=== PATIENT | female | born 1965 | race Caucasian/White ===

== ENCOUNTER 2023-11-12 02:42 | Emergency (ER) | payer OTHER, SELFPAY ==
[2023-11-12 02:43] VITALS: BP 179/97
[2023-11-12 03:09] VITALS: BP 185/108
[2023-11-12 03:11] VITALS: BMI 23.2
--- NOTE | 2023-11-12 03:11 | ED.GENMED ---
History of Present Illness
<RICA Marcum - Last Filed: 11/12/23 05:07>
General
Chief Complaint: Blood Pressure Problem
Source: patient
Exam Limitations: none
Time Seen by Provider: 11/12/23 02:55
Nursing documentation reviewed up to this point in time: agreed with
History of Present Illness
History of Present Illness:
Pt is a 58 y/o F who presents with complaints of nausea x8 mo and head pressure x 1 mo. The nausea has worsened over the past weekend. The head pressure is described as a bruise like sensation in the back of her head. She has a similar sensation in
the back of her neck and jaw. The pt reported that she went to [facility] 8 hours ago for similar complaints and HTN but was unable to get a head CT or EKG and left AMA after 4 hours in the ED. She returned home and took Ibuprofen with relief and
was able to sleep. She reported that when she woke up 4 hours later, she had a return of nausea and head pressure. Denies LOC, head injury, fall, vomiting, chest pain, SOB, calf pain, palpitations, numbness, or tingling.
She noted a near syncope episode with dizziness on while walking. There was no LOC and no head injury. She also notes episodes of leg cramps when she stretches in bed and hand cramps with use. She states that when she has the hand cramps,
she feels a tingling sensation on her head. The pt reports that she has not seen her PCP for HTN and is not taking any medications.
Past History
<RICA Marcum - Last Filed: 11/12/23 05:07>
Past History
ED Past Medical History: None
ED Past Surgical History: Orthopedic (Left knee replacement with manipulation)
Social History
Tobacco: Former smoker
Review of Systems
<RICA Marcum - Last Filed: 11/12/23 05:07>
Review of Systems
Allergies reviewed?: Yes
Constitutional: Reports no symptoms
EENT: Reports no symptoms
Respiratory: Reports no symptoms
Cardiac: Reports no symptoms
ABD/GI: Reports nausea
: Reports no symptoms
Musculoskeletal: Reports no symptoms
Skin: Reports no symptoms
Neurological: Reports headache
Endocrine: Reports no symptoms
Hematologic/Lymphatic: Reports no symptoms
Psychiatric: Reports no symptoms
Phy Exam
<RICA Marcum - Last Filed: 11/12/23 05:07>
General Physical Exam
General Presentation: mild distress
General age: appears stated age
General Skin: warm and dry
General Habitus: normal
General Mental: alert
General Hydration: appears well hydrated
ENT Exam
ENT Exam: neck supple
Eye Exam
Eye Exam: EOMI, cornea clear and conjunctiva normal
Cardiovascular Exam
Cardiovascular Exam: regular rate/rhythm, no edema and normal peripheral pulses
Pulmonary Exam
Pulmonary Exam: lungs clear, no respiratory distress, no rales, chest non tender, no crackles, no rhonchi, no stridor, no wheezing and no cough
Gastrointestinal Exam
Gastrointestinal Exam: normal bowel sounds, non tender, soft, no pulsatile mass and non distended
Neurological Exam
Neurological Exam: alert, oriented x3, no motor deficits, normal reflexs, no sensory deficits and speech normal
Musculoskeletal Exam
Musculoskeletal Exam: full ROM, no edema and neuro vasc intact
Skin Exam
Skin Exam: normal color and warm/dry
Psychiatric Exam
Psychiatric Exam: normal mood/affect
Course
<RICA Marcum - Last Filed: 11/12/23 05:07>
Orders/Labs/Results
Orders:
Orders
11/12/23 03:10
IV Insert/Care/Rem.- Treatment PRN
11/12/23 03:11
Electrocardiogram (*1) Stat
Reason for Study: Other
Other Reason for Exam: hypertension
Electrocardiogram (*1) Urgent
Reason for Study: Vertigo / Dizzy
CT Head W/o Iv Contrast Urgent
Comment:
Reason For Exam: head pressure, elevated blood pressure
EKG- Treatment ONCE
11/12/23 03:31
Labetalol HCl [Trandate] 20 mg IV NOW STA
Ondansetron Injectable [Zofran] 4 mg IV NOW STA
11/12/23 03:34
Complete Blood Count/With Diff Urgent
Comprehensive Metabolic Panel Urgent
11/12/23 04:56
Acetaminophen [Tylenol] 650 mg PO NOW STA
Abnormal Lab Results
11/12/23
03:34
RBC 4.09 L 10^6/uL
(4.20-5.40)
MCH 32.0 H pg
(27.0-31.0)
Potassium 3.4 L mmol/L
(3.5-5.1)
BUN 20 H mg/dl
(7-17)
ALT 36 H U/L
(0-35)
11/12/23 03:34
11/12/23 03:34
Vital Signs
Initial and Last Documented VS:
Initial Vital Signs
Temp Pulse Resp BP Pulse Ox
98.3 F 81 20 179/97 100
11/12/23 02:43 11/12/23 02:43 11/12/23 02:43 11/12/23 02:43 11/12/23 02:43
Last Documented Vital Signs
Temp Pulse Resp BP Pulse Ox
98.3 F 62 11 147/94 97
11/12/23 02:43 11/12/23 04:15 11/12/23 04:15 11/12/23 04:14 11/12/23 04:15
<Tremaine Moreno, DO - Last Filed: 11/12/23 04:48>
Orders/Labs/Results
Orders:
Orders
11/12/23 03:10
IV Insert/Care/Rem.- Treatment PRN
11/12/23 03:11
Electrocardiogram (*1) Stat
Reason for Study: Other
Other Reason for Exam: hypertension
Electrocardiogram (*1) Urgent
Reason for Study: Vertigo / Dizzy
CT Head W/o Iv Contrast Urgent
Comment:
Reason For Exam: head pressure, elevated blood pressure
EKG- Treatment ONCE
11/12/23 03:31
Labetalol HCl [Trandate] 20 mg IV NOW STA
Ondansetron Injectable [Zofran] 4 mg IV NOW STA
11/12/23 03:34
Complete Blood Count/With Diff Urgent
Comprehensive Metabolic Panel Urgent
11/12/23 04:56
Acetaminophen [Tylenol] 650 mg PO NOW STA
Abnormal Lab Results
11/12/23
03:34
RBC 4.09 L 10^6/uL
(4.20-5.40)
MCH 32.0 H pg
(27.0-31.0)
Potassium 3.4 L mmol/L
(3.5-5.1)
BUN 20 H mg/dl
(7-17)
ALT 36 H U/L
(0-35)
11/12/23 03:34
11/12/23 03:34
Vital Signs
Initial and Last Documented VS:
Initial Vital Signs
Temp Pulse Resp BP Pulse Ox
98.3 F 81 20 179/97 100
11/12/23 02:43 11/12/23 02:43 11/12/23 02:43 11/12/23 02:43 11/12/23 02:43
Last Documented Vital Signs
Temp Pulse Resp BP Pulse Ox
98.3 F 62 11 147/94 97
11/12/23 02:43 11/12/23 04:15 11/12/23 04:15 11/12/23 04:14 11/12/23 04:15
<RICA Marcum - Last Filed: 11/12/23 05:07>
MDM/Problems Addressed
Differential Diagnosis Includes:
Uncontrolled HTN
<Tremaine Moreno DO - Last Filed: 11/12/23 04:48>
MDM/Problems Addressed
MDM/Problems Addressed:
58-year-old female with hypertensive urgency, headache. No tumor or endorgan damage. Stable for discharge. Improved after labetalol. Will discharge with prescription for labetalol follow-up with primary care.
Chronic conditions affecting care: HTN
Acute Exacerbation and/or Progression of Chronic Illness: HTN
<RICA Marcum - Last Filed: 11/12/23 05:07>
*Critical Care Note
Total Time (30-74mins, 75-104mins- exclusive of procedures): Not Applicable
<Tremaine Moreno DO - Last Filed: 11/12/23 04:48>
*Radiology
Radiology exam reviewed: radiology read reviewed (CT head no acute findings)
*Pulse Oximetry
Patient hypoxic: no
*EKG
Interpreted by ED Provider?: Yes
EKG Intrepretation Date: 11/12/23
EKG Intrepretation Time: 03:26
Interpretation: normal
Comparison EKG: no comparison EKG present
Heart Rate: 76
Rate: normal
Rhythm: sinus
[place]: normal axis
Interval: normal interval
QRS Pattern: normal QRS
Ischemia: no ischemia
*Physical Therapy Director Interpretation
Rate: normal
Interpretation: normal
Heart Rate: 75
Rhythm: sinus
*Critical Care Note
Total Time (30-74mins, 75-104mins- exclusive of procedures): 30
comment:
Critical care statement: A total of 30 minutes of critical care time was provided for this patient. This includes management of unstable vital signs, evaluation of the patient at bedside, reviewing the patient's pertinent medical records, discussion
with consultants, review of old EKGs and review of pertinent medical records. This time with separate from time utilized to perform the aforementioned documented procedures
<Tremaine Moreno DO - Last Filed: 11/12/23 04:48>
Patient Management
Social determinants of health affecting care: Living situation
Escalation/DeEscalation of care consider admission/obs:
Admit not indicated
ED Attending Note
<RICA Marcum - Last Filed: 11/12/23 05:07>
-
Portions of this chart may have been created with voice recognition software.� Occasional wrong word or��sound alike� substitutions may have occurred due to the inherent limitations of voice recognition software.
<Tremaine Moreno DO - Last Filed: 11/12/23 04:48>
ED Attending Note
Patient seen and examined by attending physician: Yes
I performed a history and physical exam of patient and discussed management with resident, I reviewed resident's note and agree with documented findings and plan of care.: Yes
ED Attending Note:
I have reviewed and agree with history and treatment plan by Tayo Ruiz. My exam revealed
Physical Exam
General: no apparent distress, not acutely ill, hypertensive 178/113
Neck: supple. no meningeal signs. normal posterior pharynx
Heart: s1/s2 regular rate and rhythm, no murmur. equal radial
pulses.
HEENT: Pupils equal round reactive to light, EOMI
Lungs: no acute respiratory distress. clear bilaterally
Abdomen: normal bowel sounds. not tender. no CVAT
Neuro: alert and oriented. no focal neurological deficits cranial nerves II through XII intact
Skin: no rash
Psychiatric: well kept. interactive and cooperative
Extremities: no edema. no calf tenderness. negative homans. good distal pulses
Discharge Plan
Departure
Patient Disposition: Home (Routine Discharge)
Date of Disposition: 11/12/23
Time of Disposition: 04:47
Patient with high blood pressure during this ER visit?: Yes
Condition: Good
Discharge Problem:
Headache, Hypertensive urgency
Instructions: High Blood Pressure (DC), Headache, Adult ED
Prescriptions:
New
labetalol 100 mg tablet
100 mg PO BID Qty: 20 0RF
Referrals:
Emil Mckeon IV, MD [Family Provider] - Call in 1-3 days for appt
Interventions
Interventions:
*Risk Screen - Suicide Last Done: 11/12/23 02:43
*General Assessment Last Done: 11/12/23 02:43
*Neglect/Abuse Screening Last Done: 11/12/23 02:43
ED- Cardiac Assessment Last Done: 11/12/23 03:09
ED- Neurological Assessment Last Done: 11/12/23 03:09
ED- Pulmonary Assessment Last Done: 11/12/23 03:09
Discharge Date and Time
Print Language: VIET[place]
[2023-11-12 03:32] VITALS: BP 171/104
[2023-11-12] MEDS: ZOFRAN 4 MG IV (03:36)
[2023-11-12] MEDS: TRANDATE 20 MG IV (03:37)
[2023-11-12 03:44] LABS: % Basophils 0.5 % (0-2); % Eosinophils 0.9 % (0-6); % Immature Granulocytes 0.2 % (0-0.5); % Lymphocytes 27.7 % (20.5-51.1); % Monocytes 7.6 % (1.7-9.3); % Neutrophils 63.1 % (42.2-75.2); Absolute Eosinophils 0.1 10^3/uL (0-0.7); Absolute Lymphocytes 1.8 10^3/uL (1.2-3.4); Absolute Monocytes 0.5 10^3/uL (0.1-0.6); Absolute Neutrophils 4.1 10^3/uL (1.4-6.5); Hematocrit 37.4 % (37.0-47.0); Hemoglobin 13.1 g/dL (12.0-16.0); Mean Corpuscular Volume 91.4 fL (81.0-99.0); Mean Platelet Volume 8.7 fL (7.4-10.4); Nucleated Red Blood Cells % 0 %; Platelet Count 255 10^3/uL (130-400); Red Blood Cell Count 4.09 10^6/uL (4.20-5.40); Red Cell Dist. Width 12.2 % (11.5-14.5); White Blood Cell Count 6.5 10^3/uL (4.8-10.8)
[2023-11-12 04:00] VITALS: BP 158/103
[2023-11-12 04:07] LABS: ALT (SGPT) 36 U/L (0-35); AST (SGOT) 34 U/L (14-36); Albumin 4.3 g/dl (3.5-5.0); Alkaline Phosphatase 62 U/L (38-126); Blood Urea Nitrogen 20 mg/dl (7-17); Calcium 9.5 mg/dl (8.4-10.2); Carbon Dioxide 26 mmol/L (22-30); Chloride 104 mmol/L (98-107); Estimated Creatinine Clearance 79 ml/min; Glucose 93 mg/dl (70-99); Potassium 3.4 mmol/L (3.5-5.1); Sodium 142 mmol/L (135-145); Total Bilirubin 0.8 mg/dl (0.2-1.3); Total Protein 6.8 g/dl (6.3-8.2); eGFR > 60.00
[2023-11-12 04:14] VITALS: BP 147/94
[2023-11-12] MEDS: TYLENOL 650 MG PO (05:06)
== END 2023-11-12 06:04 | disposition home or self-care (01) ==
LOC: EMR 02:42
PROVIDERS: EMERGENCY PHYSICIAN Emergency Medicine; FAMILY PHYSICIAN Family Medicine
DX: R11.0 Nausea (principal); I16.0 Hypertensive urgency; Z87.891 Personal history of nicotine dependence
CPT/HCPCS: 99284; 96374; 96375; 70450; 80053; 85025; 93005